=== PATIENT | female | born 1945 | race Caucasian/White ===

== ENCOUNTER 2020-11-07 07:57 | Inpatient (IN) ==
--- NOTE | 2020-10-03 12:16 | PAT Medication Instructions ---
Medication Instructions Date of Service October 03, 2020 Home Medications aspirin 81 mg capsule 81 mg PO QAM calcium citrate 500 mg (2,376 mg) effervescent tablet 500 mg PO QAM cholecalciferol (vitamin D3) 25 mcg (1,000 unit) chewable tablet (Vitamin D3) 25 mcg PO QAM gabapentin 100 mg tablet 100 mg PO TID losartan 50 mg tablet 50 mg PO QAM durmlceh-fdp-uyzems 5 mg-zeaxanth 1 mg-bilberry 7.5 mg-herbal capsule (Macular Health Formula) 1 cap PO QAM multivitamin 1 cap PO QAM omega-3 fatty acids 1,000 mg PO QAM STOP taking 2 weeks before surgery toiukele-dpk-wwbeeu 5 mg-zeaxanth 1 mg-bilberry 7.5 mg-herbal capsule (Macular Health Formula) 1 cap PO QAM omega-3 fatty acids 1,000 mg PO QAM DO NOT take the morning of surgery calcium citrate 500 mg (2,376 mg) effervescent tablet 500 mg PO QAM cholecalciferol (vitamin D3) 25 mcg (1,000 unit) chewable tablet (Vitamin D3) 25 mcg PO QAM losartan 50 mg tablet 50 mg PO QAM multivitamin 1 cap PO QAM Take morning of surgery With a small sip of water, OTHERWISE NOTHING TO EAT OR DRINK AFTER MIDNIGHT: aspirin 81 mg capsule 81 mg PO QAM (unless surgeon directs otherwise) gabapentin 100 mg tablet 100 mg PO TID Take evening before surgery gabapentin 100 mg tablet 100 mg PO TID Other Notes If you have any questions please call us at [phone] or [phone] or [phone] or [phone]
--- NOTE | 2020-10-05 13:41 | Anesthesiology Consultation ---
Date of Service October 05, 2020 Assessment & Plan (1) Encounter for pre-operative examination: Chart Review Chart Review: Acceptable Risk for Surgery (pending preop Covid testing results ) and Patient seen in Pre Admission Testing Per PAT appt on 10/05/20, patient denies any recent travel or large group activities. No known Covid positive contacts or Covid related symptoms. No known Covid infection in the past 90 days. Pt is vaccinated for Covid. Preop Covid testing scheduled 11/03/20 = will await results. Educated on importance of self quarantining, social distancing and wearing mask in public for the patient one week prior to surgery and after Covid testing done Pt seen by PCP 09/28/20= patient presents for clearance for back surgery. " Patient is cleared for surgery. EKG performed in the office shows LBBB. This EKG is unchanged from previous EKG from 2010." (Pt had ECHO done in 2010 (no RWMA) - discussed with Dr. Segura- pt has low CV risk factors (HTN/age), no recent chest pain or WALKER, and also has good functional status- pt can proceed without further cardiar work up ) Teaching & Discussion Pre-Anesthesia Teaching/Discussion Notes: Instructed NPO after midnight before surgery,except medications with 15 cc of water. Medication instructions provided according to the PAT guidelines. History Surgery Operation Date: 11/07/20 09:35 Proposed Procedures p L4-L5 Decompression Fusion Spinal Cord Monitoring - Otto Henderson DO Height/Weight Height: 5 ft 4 in Weight: 72.3 kg Allergies Allergy/AdvReac Type Severity Reaction Status Date / Time No Known Allergies Allergy Verified 10/03/20 10:51 Medications Home Medications Medication Instructions Recorded Confirmed Last Taken aspirin 81 mg capsule 81 mg PO QAM 10/03/20 10/03/20 Unknown calcium citrate 500 mg (2,376 mg) 500 mg PO QAM 10/03/20 10/03/20 Unknown effervescent tablet cholecalciferol (vitamin D3) 25 25 mcg PO QAM 10/03/20 10/03/20 Unknown mcg (1,000 unit) chewable tablet (Vitamin D3) gabapentin 100 mg tablet 100 mg PO TID 10/03/20 10/03/20 Unknown losartan 50 mg tablet 50 mg PO QAM 10/03/20 10/03/20 Unknown cnvjflxb-szm-lhjzbo 5 mg-zeaxanth 1 cap PO QAM 10/03/20 10/03/20 Unknown 1 mg-bilberry 7.5 mg-herbal capsule (Macular Health Formula) multivitamin 1 cap PO QAM 10/03/20 10/03/20 Unknown omega-3 fatty acids 1,000 mg PO QAM 10/03/20 10/03/20 Unknown Past Medical History Medical History (Updated 10/05/20 @ 14:05 by Yolanda Cortez PA-C) CKD (chronic kidney disease), stage III HTN (hypertension) Macular degeneration Spinal stenosis Exercise / Class Metabolic Activity II 4-5 Yardwork/Stairs/Walk up hill (one flight of stairs - no chest pain or SOB ) Past Surgical History Surgical History History of carpal tunnel surgery of right wrist Hx of toe surgery right and has pin Past Anesthesia History No Hx of Anesthesia Complications (with exception to occ PONV ) and No Family Hx of Anesthesia Complications History of PONV History of PONV and Hx of Motion Sickness Social History Smoking Status: Never smoker Do You Dip or Chew Tobacco: No Hx Alcohol Use: Yes Alcohol type: wine alcohol intake frequency: a few times a month Hx Substance Use: No substance use type: does not use Review of Systems Occ palpitations - x years - occ- stable- PCP aware and monitors Patient denies chest pain, shortness of breath, dyspnea on exertion, reflux, cough, wheezing. No hx of seizures, stroke, FL, apnea/snoring. No hx of blood clots or blood transfusions Physical Exam Vital Signs VITALS BP 161/76 (usually well controlled per patient- BP at PCP appt on 09/28/20 was 112/62) P 61 TEMP 98.3 SP02 95% RESP 16 Constitutional no acute distress ENMT Mouth: no TMJ clicking Thyromental Distance: > or= 3.5 Finger Breadths (4.0) Mallampati Class: III Missing molars Crowns on molars Neck + limited neck extension (mild ) Respiratory normal respiratory effort; no respiratory distress Auscultation: lungs clear to auscultation bilaterally; no wheezes Cardiovascular Rate/Rhythm: regular rate and regular rhythm Heart Sounds: no murmur Vessels: no carotid bruit Musculoskeletal Spine: no pain with cervical ROM Extremities: extremities normal to inspection Psychiatric Orientation: alert Lab Results Anesthesia Preop Results Results Anesthesia Widget: WBC 7.45 K/uL (4.8-10.8) 10/05/20 Hgb 13.6 g/dL (12.0-16.0) 10/05/20 Hct 41.0 % (37-47) 10/05/20 Plt 321 K/uL (130-400) 10/05/20 Na 139 mmol/L (136-145) 10/05/20 K 4.6 mmol/L (3.5-5.1) 10/05/20 Cl 106 mmol/L (98-107) 10/05/20 CO2 28 mmol/L (21-32) 10/05/20 BUN 23 mg/dl (7-18) H 10/05/20 Creat 0.93 mg/dl (0.6-1.2) 10/05/20 Glucose Level 87 mg/dl (70-99) 10/05/20 PT 10.2 Seconds (9.0-12.0) 10/05/20 PTT 26.2 Seconds (21.0-31.0) 10/05/20 INR 1.0 (0.9-1.1) 10/05/20 Urine Color Yellow 10/05/20 Urine Appearance Clear (Clear) 10/05/20 Urine pH 6.5 (4.5-7.5) 10/05/20 Urine Specific [place] 1.023 (1.000-1.030) 10/05/20 Urine Protein Negative (Negative) 10/05/20 Urine Glucose (UA) Negative (Negative) 10/05/20 Urine Ketones Trace (Negative) H 10/05/20 Urine Blood Negative (Negative) 10/05/20 Urine Nitrite Negative (Negative) 10/05/20 Urine Bilirubin Negative (Negative) 10/05/20 Urine Urobilinogen Negative (Negative) 10/05/20 Urine Leukocyte Esterase Negative (Negative) 10/05/20 Blood Type A Positive 10/05/20 Antibody Screen NEGATIVE 10/05/20 Testing Electrocardiogram Date: 09/28/20 SR at 65bpm. LBBB and left axis. No change from 2010 per confirming provider. Chest X-Ray Date: 10/05/20 Findings: + NAD and + cardiomegaly (moderate ) Lung volumes are normal. There is no pneumothorax or pleural effusion. No consolidation to suggest pneumonia. Note is made of moderate cardiomegaly. There is mitral annular calcification. Opacity at the right cardiophrenic angle likely reflects epicardial fat pad. There is no evidence for pulmonary edema. Echocardiogram Date: 09/05/10 EF: 55% or better LV Function: normal RWMA: + none Other Findings: no LVH Mild to moderately increased RVSP 52mmHg. AV sclerosis. No significant aortic stenosis. Mild AR.
--- NOTE | 2020-11-04 10:38 | History & Physical Report ---
Date of Service November 04, 2020 Assessment & Plan (1) Neurogenic claudication due to lumbar spinal stenosis: Plan: Assessment lumbar spinal stenosis with spinal listhesis L4-L5. Plan this time patient presents with progressive neurologic deficits lumbar instability and severe spinal stenosis. In light of her presentation I am recommending urgent lumbar decompression and fusion L4-L5 to avoid any permanent neurologic deficit. Risk benefits pros cons and alternatives were outlined in detail. History of Present Illness Chief Complaint: Back with bilateral leg pain and weakness Primary Care Provider: Park Su MD This is a 75-year-old female presents with progressive decline in status. She has bilateral buttock pain radiating into the right and left lower extremities. The right is worse than the left. She is failed extensive course of nonoperative care she is unable to stand and ambulate and notes her legs giving way. Allergies Allergy/AdvReac Type Severity Reaction Status Date / Time No Known Allergies Allergy Verified 10/03/20 10:51 Home Medications Medication Instructions Recorded Confirmed Type aspirin 81 mg capsule 81 mg PO QAM 10/03/20 10/03/20 History calcium citrate 500 mg (2,376 mg) 500 mg PO QAM 10/03/20 10/03/20 History effervescent tablet cholecalciferol (vitamin D3) 25 25 mcg PO QAM 10/03/20 10/03/20 History mcg (1,000 unit) chewable tablet (Vitamin D3) gabapentin 100 mg tablet 100 mg PO TID 10/03/20 10/03/20 History losartan 50 mg tablet 50 mg PO QAM 10/03/20 10/03/20 History gzngvrkc-vzh-jcrxtr 5 mg-zeaxanth 1 cap PO QAM 10/03/20 10/03/20 History 1 mg-bilberry 7.5 mg-herbal capsule (Macular Health Formula) multivitamin 1 cap PO QAM 10/03/20 10/03/20 History omega-3 fatty acids 1,000 mg PO QAM 10/03/20 10/03/20 History Past Med/Surg History Medical History (Updated 11/04/20 @ 10:38 by Otto Henderson DO) CKD (chronic kidney disease), stage III HTN (hypertension) Macular degeneration Spinal stenosis Surgical History History of carpal tunnel surgery of right wrist Hx of toe surgery right and has pin Social History Smoking Status: Never smoker Second Hand Exposure: No; Hx Alcohol Use: Yes Alcohol type: wine Hx Substance Use: No Preferred Language: Thai Communication Ability: Effective Forensic Investigator Required: No Beliefs That Will Affect Care: None Current Living Situation: Spouse Feels Safe at Home: Yes Assistive Devices: Contacts, Glasses and Hearing Aid - Bilateral Physical Exam Physical Exam: Patient is alert and oriented Heart regular in rhythm Lungs clear to auscultation Patient demonstrates deficits with bilateral dorsiflexion and quadriceps at a 4- /5. She is unable to stand and ambulate across the room without assistance secondary to leg weakness. Sensory is intact.
[~2020-11-07 07:57] MED LIST: ACETAMINOPHEN 500 MG TAB PO SCH; CeleBREX 200 MG CAP PO SCH; GABAPENTIN 300 MG CAP PO SCH; LR 15ML/HR IV SCH; ceFAZolin 1000MG 1,000 MG/7.5 ML SYR IV SCH
[2020-11-07] MEDS ORDERED: fentaNYL citrate 100 MCG/2 ML VIAL ONE (08:12)
[2020-11-07] MEDS ORDERED: MIDAZOLAM HCL 1 MG/ML 2ML VIAL ONE (08:12)
[2020-11-07] MEDS ORDERED: fentaNYL citrate 100 MCG/2 ML VIAL IV PRN (08:57)
[2020-11-07] MEDS ORDERED: PROMETHAZINE HCL 6.25 MG in SODIUM CHLORIDE 0.9% 50 ML IV PRN (08:57)
[2020-11-07] MEDS ORDERED: ePHEDrine sulfate 50 MG/ML AMP IV PRN (08:57)
[2020-11-07] MEDS ORDERED: ATROPINE SULFATE 0.1 MG/ML 10ML SYR IV PRN (08:57)
[2020-11-07] MEDS ORDERED: ONDANSETRON INJ 2 MG/ML 2 ML VIAL IV PRN ×2 (08:57→13:29)
--- NOTE | 2020-11-07 09:03 | History & Physical Bridge Note ---
Date of Service November 07, 2020 History & Physical Bridge Note I have examined the patient, reviewed the History & Physical and in the interval since the performance of the History & Physical I have noted the following changes of clinical significance: no changes noted
[2020-11-07] MEDS ORDERED: EPINEPHrine INJ 1 MG/ML AMP ONE (09:18)
[2020-11-07] MEDS ORDERED: BUPIVACAINE 0.5 % 5 MG/1 ML MPF 30ML VIAL ONE (09:18)
[2020-11-07] MEDS ORDERED: HYDROmorphone INJ 2 MG/ML SYR/VIAL ONE (10:01)
[2020-11-07] MEDS ORDERED: GLYCOPYRROLATE 0.2 MG/ML VIAL ONE (10:03)
[2020-11-07] MEDS ORDERED: PROPOFOL IV EMULSION 10 MG/ML 20 ML VIAL IV ONE (10:03)
[2020-11-07] MEDS ORDERED: ePHEDrine sulfate 50 MG/ML SYR ONE (10:03)
[2020-11-07] MEDS ORDERED: PHENYLEPHRINE 100MCG/ML 5ML SYR ONE (10:03)
[2020-11-07] MEDS ORDERED: ROCURONIUM BROMIDE 10 MG/ML 5 ML VIAL IV ONE (10:03)
[2020-11-07] MEDS ORDERED: ONDANSETRON INJ 2 MG/ML 2 ML VIAL ONE (10:03)
[2020-11-07] MEDS ORDERED: DEXAMETHASONE SOD INJ 4 MG/ML VIAL ONE (10:03)
[2020-11-07] MEDS ORDERED: NEOSTIGMINE METHYLSULFATE 1 MG/ML 10ML VIAL ONE (10:03)
[2020-11-07] MEDS ORDERED: LIDOCAINE 2% 2 ML VIAL/AMP(20MG/ML) INFIL ONE (10:03)
[2020-11-07] MEDS ORDERED: FLOSEAL HEMOSTATIC MATRIX 10ML TOP ONE (11:07)
--- NOTE | 2020-11-07 11:11 | Operative Report ---
Post Operative Report Pre & Post Diagnosis Operation Date: 11/07/20 09:35 Pre-Op Diagnosis: Spinal Stenosis, Lumbar Region with Neurogenic Claudication Post-Op Diagnosis: Spinal Stenosis, Lumbar Region with Neurogenic Claudication I identified the patient and participated in the time-out.: Yes Procedure Operation Date: 11/07/20 09:35 Actual Procedures #1 lumbar decompression bilateral medial facetectomies and foraminotomies L3-4 and L4-L5. #2 posterior spinal fusion L4-L5. #3 placed posterior instrumentation L4-5. #4 interbody fusion L4-5. #5 placement peek cage 12 x 26 mm at L4-5. #6 placement locally harvested morselized autograft in the posterior gutters. #7 placement of I factor in the interbody space in infuse collagen sponge, master graft in the posterior lateral gutters. Surgeon Otto Henderson DO Jeweler Apprentice Leonor Charles Estimated Blood Loss 75 Findings Consistent with Post-Op Diagnosis Specimens None Indications This is a 75-year-old female with marked decline in status after failing extensive course of nonoperative care she is here for surgical invention. Description of Procedure Patient was met with identified informed consent obtained. Patient was then taken to the operative suite underwent an patient placed in a prone position the [place] table top Aakash frame. All bony prominences well-padded eyes inspected to ensure no external pressure placed upon them. This point lumbar spine was prepped and draped in a sterile fashion. Sharp dissection with the assistance of Bovie cautery was performed down to and exposing the lamina and transverse processes of L for L5. From caudal cephalad fashion complete laminectomy of L4 partial laminectomy L3 was performed including bilateral medial facetectomies and foraminotomies addressing severe spinal stenosis. Pedicle screws were then placed in L4 and L5 bilaterally with assistance of fluoroscopy and appropriate sized bree placed. By way of a transforaminal approach on the right complete discectomy of L4-5 was performed endplates curetted to subcortically bone and a 12 x 22 mm peek cage filled I factor tapped in position. The rods were then compressed locked in final position bilaterally. The transverse processes of L4 and L5 burred to subcortical being bone. Infuse collagen sponge master graft and local autograft was placed in the posterior gutters. 15 round SHIRA drain inserted. Incision was then closed with 1 Vicryl to fascia 2-0 Vicryl subcutaneously and 4 Monocryl for final skin closure. Steri-Strip sterile dressings placed. Patient will continue to PACU stable condition. Please note spinal cord monitoring visualized at the procedure no changes noted. Lastly Leonor Charles was present at the entire procedure and all the patient positioning complex portions of the surgery and final skin closure. I attest to the content of the Intraoperative Record and any orders documented therein. Any exceptions are noted below.
--- NOTE | 2020-11-07 11:25 | Fluoroscopy Report ---
FL lumbar spine 2-3V HISTORY: 75 years-old Female L4-L5 DECOMP/FUSION COMPARISON: MR lumbar spine 09/20/2020 TECHNIQUE: 2 spot fluoroscopic images of the lumbar spine were obtained utilizing 19.2 seconds fluoro scopy time FINDINGS: And laminectomy with posterior interbody bree and screw fusion and discectomy at what is labeled the L 4-L5 interspace. The hardware appears intact. Alignment appears satisfactory. No acute fracture. Mult ilevel spondylitic spurring. IMPRESSION: Fluoroscopic assistance as above. ACT 112: Negative or not required by law. The above report was generated using voice recognition software. It may contain grammatical, syntax o r spelling errors. Electronically signed by: Kike Redd M.D. 11/07/2020 11:24 AM
--- NOTE | 2020-11-07 11:42 | Anesthesiology Progress Note ---
Date of Service November 07, 2020 Anesthesia Post Procedure Vital Signs Vital Signs: Temp Pulse Resp BP Pulse Ox 11/07/20 08:36 37 C 66 18 204/72 H 98 Transfer of Care Handoff Completed per policy Notes Mental Status: alert / awake / arousable Patient Amnestic to Procedure: Yes Nausea / Vomiting: adequately controlled Pain: adequately controlled Airway Patency, RR, SpO2: stable & adequate BP & HR: stable & adequate Hydration State: stable & adequate Anesthetic Complications: no major complications apparent
[2020-11-07] MEDS ORDERED: traMADol HCL 50 MG TABLET PO PRN (13:29)
[2020-11-07] MEDS ORDERED: hydrOXYzine HCl 25 MG TAB PO PRN (13:29)
[2020-11-07] MEDS ORDERED: METOCLOPRAMIDE HCL INJ 5 MG/ML 2 ML VIAL IV PRN (13:29)
[2020-11-07] MEDS ORDERED: SOD PHOSPHATE/SOD BIPHOSPHATE ENEMA 132 ML BTL PR PRN (13:29)
[2020-11-07] MEDS ORDERED: diphenhydrAMINE Capsule 25 MG CAP PO PRN (13:29)
[2020-11-07] MEDS ORDERED: oxyCODONE HCL IR 5 MG TAB (IMMEDIATE RELEASE) PO PRN (13:29)
[2020-11-07] MEDS ORDERED: DO NOT ADMINISTER FLU VACCINE PRN (13:29)
[2020-11-07] MEDS ORDERED: ONDANSETRON 4 MG OD TAB PO PRN (13:29)
[2020-11-07] MEDS ORDERED: HYDROmorphone INJ 0.5 MG/0.5 ML SYR IV PRN (13:29)
[2020-11-07] MEDS ORDERED: ALUMINUM/MAGNESIUM SUSP 30 ML UDC PO PRN (13:29)
[2020-11-07] MEDS ORDERED: DO NOT ADMINISTER PNEUMOCOCCAL VACCINE PRN (13:29)
[2020-11-07] MEDS ORDERED: ACETAMINOPHEN 1,000 MG/100 ML VIAL IV PRN (13:29)
[2020-11-07] MEDS ORDERED: FAMOTIDINE 20 MG TAB PO PRN (13:29)
[2020-11-07] MEDS ORDERED: LORazepam 0.5 MG/1 ML VIAL IV PRN (13:29)
[2020-11-07] MEDS ORDERED: MAGNESIUM HYDROXIDE SUSP 30 ML UDC PO PRN (13:29)
[2020-11-07] MEDS ORDERED: NALOXONE HCL 0.4 MG/1 ML VIAL/CARP IV PRN (13:29)
[2020-11-07] MEDS ORDERED: HYDROmorphone INJ 1 MG/ML SYRINGE IV PRN (13:29)
[2020-11-07] MEDS ORDERED: ACETAMINOPHEN 500 MG TAB PO PRN (13:29)
[2020-11-07] MEDS ORDERED: PROMETHAZINE HCL 12.5 MG in SODIUM CHLORIDE 0.9% 50 ML IV PRN (13:29)
[2020-11-07] MEDS ORDERED: LORazepam 0.5 MG TAB PO PRN (13:29)
[2020-11-07] MEDS ORDERED: bisacodyL 10 MG SUPP PR PRN (13:29)
[2020-11-07] MEDS ORDERED: hydrALAZINE HCL 20 MG/ML VIAL IV PRN (14:09)
[2020-11-07] MEDS: GABAPENTIN 100 MG CAP PO SCH ×2 (15:07→20:41)
[2020-11-07] MEDS: LACTATED RINGER'S 1,000 ML IV SCH (15:17)
--- NOTE | 2020-11-07 15:40 | Hospitalist Consultation ---
Date of Consultation November 07, 2020 Assessment & Plan (1) Neurogenic claudication due to lumbar spinal stenosis: - POD#0 L4-L5 decompression and fusion by Dr. Henderson - activity and wound care orders as per ortho - pain control with bowel regimen - PT/OT - monitor H/H for acute blood loss anemia and transfuse blood products PRN -EBL 75 cc (2) HTN (hypertension): -BP noted to the elevated intra and postoperatively -Losartan held this morning, continue to hold pending a.m. renal labs -As needed hydralazine ordered (3) DVT prophylaxis: -TEDs/SCDs as per spine Ortho Thank you for this consultation. We will follow the patient with you during their hospital stay. You can reach [facility] via the [facility] in [place] [facility]. Supervising Physician Co-Signing Physician Notes Patient is a 75-year-old female with history of CKD, hypertension and other medical problems was seen and examined postoperatively after having lumbar surgery by Dr. Henderson for lumbar spinal stenosis with neurogenic claudication. Patient is doing well postoperatively. She states having nausea earlier today which improved. Denies any chest pain, shortness breath, dizziness, nausea, abdominal pain. Back pain at surgical site is controlled. On exam patient is moderately built and nourished, no apparent distress, normocephalic atraumatic, EOMI, lungs are clear to auscultation, normal breath sounds, S1-S2, no murmur, no pedal edema, abdomen soft, nontender, normal bowel sounds, back+ surgical site in dressing, alert, awake, oriented, grossly moves all extremities. Patient is consulted for postop medical management. Restart losartan for blood pressure control tomorrow. Monitor blood pressure closely. Continue bowel regimen to prevent constipation. Monitor for postop anemia. Monitor renal function. Wound care, activity, DVT prophylaxis as per primary team. I personally reviewed the record. Patient is interviewed and examined at bedside. Patient's care is coordinated with Chelita Tobias NP. Please refer to the documentation above for details of patient's presentation and for discussion of other issues. History of Present Illness Reason for Consultation: Postop medical management Requesting Physician: Dr. Henderson Attending Physician: Dr. Mancini History of Present Illness 75-year-old female PMH HTN, CKD stage III, and other problems listed below who is s/p L4-L5 decompression and fusion today by Dr. Henderson. Postoperatively, the patient is doing well. She reports her pain is well controlled. She denies numbness, tingling, weakness to lower extremities. She reports some mild nausea however no vomiting or abdominal pain. No chest pain or shortness of breath. Denies lightheadedness and dizziness. She has not voided some surgery. Allergies Allergy/AdvReac Type Severity Reaction Status Date / Time No Known Allergies Allergy Verified 11/07/20 08:30 Home Medications Medication Instructions Recorded Confirmed Type aspirin 81 mg capsule 81 mg PO QAM 10/03/20 11/07/20 History calcium citrate 500 mg (2,376 mg) 500 mg PO QAM 10/03/20 11/07/20 History effervescent tablet cholecalciferol (vitamin D3) 25 25 mcg PO QAM 10/03/20 11/07/20 History mcg (1,000 unit) chewable tablet (Vitamin D3) gabapentin 100 mg tablet 100 mg PO TID 10/03/20 11/07/20 History losartan 50 mg tablet 50 mg PO QAM 10/03/20 11/07/20 History lioivine-xek-ghvhzg 5 mg-zeaxanth 1 cap PO QAM 10/03/20 11/07/20 History 1 mg-bilberry 7.5 mg-herbal capsule (Macular Health Formula) multivitamin 1 cap PO QAM 10/03/20 11/07/20 History omega-3 fatty acids 1,000 mg PO QAM 10/03/20 11/07/20 History Patient History Medical History CKD (chronic kidney disease), stage III HTN (hypertension) Macular degeneration Spinal stenosis Surgical History History of carpal tunnel surgery of right wrist Hx of toe surgery right and has pin Family History (Updated 11/07/20 @ 15:37 by EZRA Broussard) Other Family history non-contributory Social History Smoking Status: Never smoker Second Hand Exposure: No; Do You Dip or Chew Tobacco: No; Tobacco Cessation Education Requested by Patient: No Hx Alcohol Use: Yes Alcohol type: wine Hx Substance Use: No Preferred Language: [place]an Communication Ability: Effective Patient Scheduler Required: No Beliefs That Will Affect Care: None Current Living Situation: Spouse Other Information That Helps Us Care for You: No Feels Safe at Home: Yes Safety Concerns: Feels Safe At This Time Assistive Devices: Walker Review of Systems Review of Systems: ROS per HPI, all other systems reviewed and negative Physical Exam Constitutional: WD/WN, vitals as above Eyes: PERRL, conjunctivae normal, anicteric sclerae ENMT: external ear and nose normal, oropharynx normal Respiratory: normal respiratory effort, lungs clear to auscultation Cardiovascular: Rate/Rhythm: regular rate and regular rhythm Vessels: normal peripheral pulses Extremities: no edema Gastrointestinal (Abdomen): normal bowel sounds, soft, nontender, no hepatosplenomegaly Musculoskeletal: no cyanosis or clubbing, extremities motor strength 5/5 S/p back surgery, drain in place draining bloody drainage, pedal pushes and pull strong bilaterally Skin: no rashes, warm and dry Neurologic: PERRL, EOMI, accommodation nl, no face palsy, no dysarthria Psychiatric: A+Ox3, euthymic affect Results & Data Results & Data ([facility]) Vital Signs (Past 12 Hours) Vital Signs Temp Pulse Pulse Pulse Resp BP BP 11/07/20 15:29 36.4 C L 77 16 145/69 H 11/07/20 14:25 36.0 C L 68 18 181/77 H 11/07/20 13:55 36.4 C L 68 16 186/77 H 11/07/20 13:51 36.4 C L 67 16 181/74 H 11/07/20 13:15 63 15 185/81 H 11/07/20 13:00 68 16 192/77 H 11/07/20 12:50 36.5 C 69 16 203/70 H 11/07/20 12:40 69 12 194/67 H 11/07/20 12:30 71 15 201/61 H 11/07/20 12:20 60 16 192/83 H 11/07/20 12:10 59 L 12 199/71 H 11/07/20 12:00 74 13 201/79 H 11/07/20 11:50 65 12 196/70 H 11/07/20 11:40 64 17 192/73 H 11/07/20 11:30 74 18 180/73 H 11/07/20 11:23 36.2 C L 82 18 172/80 H 11/07/20 08:36 37 C 66 18 204/72 H Pulse Ox 11/07/20 15:29 99 11/07/20 14:25 98 11/07/20 13:55 99 11/07/20 13:51 98 11/07/20 13:15 95 11/07/20 13:00 96 11/07/20 12:50 97 11/07/20 12:40 97 11/07/20 12:30 98 11/07/20 12:20 93 11/07/20 12:10 92 11/07/20 12:00 93 11/07/20 11:50 98 11/07/20 11:40 98 11/07/20 11:30 97 11/07/20 11:23 97 11/07/20 08:36 98
[2020-11-07] MEDS: ceFAZolin 1000MG 1,000 MG/7.5 ML SYR IV SCH (18:00)
[2020-11-07] MEDS: DOCUSATE SODIUM/SENNA 50/8.6MG TAB PO SCH (20:40)
[2020-11-08] MEDS: ceFAZolin 1000MG 1,000 MG/7.5 ML SYR IV SCH (01:42)
[2020-11-08] MEDS: LACTATED RINGER'S 1,000 ML IV SCH (01:43)
[2020-11-08] MEDS: POLYETHYLENE (MIRALAX) 17 GM PACK PO SCH ×4 (06:29→22:28)
[2020-11-08 08:08] LABS: Basophils # (auto) 0.01 K/uL (0-0.2); Basophils % (auto) 0.1 %; Eosinophils # (auto) 0.01 K/uL (0-0.5); Eosinophils % (auto) 0.1 %; Hematocrit (blood only) 36.2 % (37-47); Immature Granulocytes # (auto) 0.04 K/uL (0.00-0.02); Immature Granulocytes % (auto) 0.3 %; Lymphocytes # (auto) 1.12 K/uL (1.2-3.4); Lymphocytes % (auto) 8.2 %; Mean Corpuscular Hemoglobin 28.7 pg (25-34); Mean Corpuscular Hgb Conc 33.1 g/dL (32-36); Mean Corpuscular Volume 86.6 fL (80-100); Mean Platelet Volume 9.4 fL (7.4-10.4); Monocytes # (auto) 1.39 K/uL (0.11-0.59); Monocytes % (auto) 10.2 %; Neutrophils # (auto) 11.03 K/uL (1.4-6.5); Neutrophils % (auto) 81.1 %; Platelet Count 279 K/uL (130-400); RDW Coefficient of Variation 14.7 % (11.5-14.5); RDW Standard Deviation 46.1 fL (36.4-46.3); Red Blood Count 4.18 M/uL (4.2-5.4)
[2020-11-08 08:38] LABS: BUN Creatinine Ratio 17.4 (10-20); Calcium 9.3 mg/dl (8.5-10.1); Creatinine Clr Calc Pharmacy 50.5 ml/min; Est GFR (African American) 70.5 ml/min; Est GFR (Non-African American) 60.9 ml/min; Potassium 4.2 mmol/L (3.5-5.1)
[2020-11-08] MEDS ORDERED: NON-FORMULARY MEDICATION (Mv-Mn-Lutein-Zeax-Bilber-Hb277 [Macular Health Formula] 5-1-7.5 PO SCH (09:00)
[2020-11-08] MEDS: CALCIUM CITRATE 950 MG TAB PO SCH (09:06)
[2020-11-08] MEDS: ASPIRIN 81 MG ECTAB PO SCH (09:06)
[2020-11-08] MEDS: LOSARTAN POTASSIUM 50 MG TAB PO SCH (09:06)
[2020-11-08] MEDS: CHOLECALCIFEROL 1,000 UNITS 25 MCG TAB PO SCH (09:06)
[2020-11-08] MEDS: GABAPENTIN 100 MG CAP PO SCH ×3 (09:06→20:06)
[2020-11-08] MEDS: CEROVITE ADV FORMULA TAB PO SCH (09:07)
--- NOTE | 2020-11-08 10:14 | Orthopedic Progress Note ---
Date of Service November 08, 2020 Assessment & Plan (1) Neurogenic claudication due to lumbar spinal stenosis: Plan: This time we will initiate physical therapy monitor her SHIRA output hopefully discharge home next few days. Admission and Anticipated Discharge Date Admission Date: November 07, 2020 Subjective Back pain controlled leg pain markedly improved Physical Exam Physical Exam: Patient is comfortable. Physical strength testing. Results & Data ([facility]) Vital Signs (Past 12 Hours) Vital Signs Temp Pulse Resp BP Pulse Ox 11/08/20 08:05 36.9 C 68 18 154/68 H 95 11/08/20 03:28 37 C 69 16 134/67 96 11/07/20 23:01 36.6 C 78 16 127/69 95
--- NOTE | 2020-11-08 14:13 | Hospitalist Progress Note ---
Date of Service November 08, 2020 Assessment & Plan (1) Neurogenic claudication due to lumbar spinal stenosis: Plan: - POD#1 L4-L5 decompression and fusion by Dr. Henderson - activity and wound care orders as per ortho - pain control with bowel regimen - PT/OT - monitor H/H for acute blood loss anemia and transfuse blood products PRN - EBL 75 cc, hgb stable 12.0 (2) HTN (hypertension): Plan: -BP elevated intra and postoperatively -received 1 dose hydralazine 11/07 -Losartan resumed today, BP controlled (3) DVT prophylaxis: Plan: -TEDs/SCDs as per spine Ortho Thank you for this consultation. We will follow the patient with you during their hospital stay. You can reach a member of the [facility] 03/09 via the [facility] role in [place] Text. Admission and Anticipated Discharge Date Admission Date: November 07, 2020 Supervising Physician Co-Signing Physician Notes Patient is seen and examined at bedside. States having some throat discomfort. Denies any significant back pain. + Flatus, No BM yet. On exam patient is moderately built and nourished, no apparent distress, normocephalic atraumatic, EOMI, lungs are clear to auscultation, normal breath sounds, S1-S2, no murmur, no pedal edema, abdomen soft, nontender, normal bowel sounds, back+ surgical site in dressing, alert, awake, oriented, grossly moves all extremities. lumbar spinal stenosis with neurogenic medication S/P lumbar decompression surgery POD #1 continue PT OT as per primary. Incentive spirometry. Bowel regimen to prevent constipation. Wound care, DVT prophylaxis as per primary team. Restarted losartan for blood pressure control. BP slightly elevated. I personally reviewed the record. Patient is interviewed and examined at bedside. Patient's care is coordinated with Chelita Tobias MANUFACTURING PROCESS ENGINEER. Please refer to the documentation above for details of patient's presentation and for discussion of other issues. Subjective Patient seen and examined. Resting in bed, having breakfast. Offers no complaints, reports pain is well controlled. Denies numbness, tingling, weakness to lower extremities. No chest pain or shortness of breath. Denies abdominal pain or nausea. Passing flatus however no BM. Voiding without difficulty. Review of Systems Review of Systems: All systems reviewed & are unremarkable except as noted in Subjective Physical Exam Constitutional: WD/WN, vitals as above Respiratory: normal respiratory effort, lungs clear to auscultation Cardiovascular: Rate/Rhythm: regular rate and regular rhythm Vessels: normal peripheral pulses Extremities: no edema Gastrointestinal (Abdomen): Inspection/Auscultation: normal bowel sounds Percussion/Palpation: abdomen soft; abdomen nontender Musculoskeletal: no cyanosis or clubbing, extremities motor strength 5/5 S/p back surgery, drain in place draining bloody drainage, pedal pushes and pull strong bilaterally Skin: no rashes, warm and dry Neurologic: no focal motor deficits Psychiatric: A+Ox3, euthymic affect Results & Data Results & Data ([facility]) Vital Signs (Past 12 Hours) Vital Signs Temp Pulse Resp BP Pulse Ox 11/08/20 12:23 37.1 C 70 18 144/72 H 96 11/08/20 08:05 36.9 C 68 18 154/68 H 95 11/08/20 03:28 37 C 69 16 134/67 96 Laboratory Results Short CBC 11/08/20 Range/Units 06:59 WBC 13.60 H (4.8-10.8) K/uL Hgb 12.0 (12.0-16.0) g/dL Hct 36.2 L (37-47) % Plt Count 279 (130-400) K/uL BMP 11/08/20 06:59 Sodium 142 Potassium 4.2 Chloride 110 H Carbon Dioxide 28 BUN 16 Creatinine 0.91 Glucose 99 Calcium 9.3
[2020-11-08] MEDS: DOCUSATE SODIUM/SENNA 50/8.6MG TAB PO SCH (20:06)
[2020-11-09] MEDS: POLYETHYLENE (MIRALAX) 17 GM PACK PO SCH (05:30)
[2020-11-09 06:23] LABS: Hematocrit (blood only) 36.1 % (37-47); Hemoglobin 11.3 g/dL (12.0-16.0); Mean Corpuscular Hemoglobin 28.3 pg (25-34); Mean Corpuscular Hgb Conc 31.3 g/dL (32-36); Mean Corpuscular Volume 90.3 fL (80-100); Mean Platelet Volume 9.4 fL (7.4-10.4); Platelet Count 266 K/uL (130-400); RDW Coefficient of Variation 14.8 % (11.5-14.5); RDW Standard Deviation 49.1 fL (36.4-46.3); White Blood Count 9.72 K/uL (4.8-10.8)
[2020-11-09 06:57] LABS: BUN Creatinine Ratio 24.9 (10-20); Calcium 8.6 mg/dl (8.5-10.1); Creatinine Clr Calc Pharmacy 46.9 ml/min; Est GFR (African American) 64.5 ml/min; Est GFR (Non-African American) 55.6 ml/min; Potassium 4.1 mmol/L (3.5-5.1)
[2020-11-09 07:30] VITALS: BP 137/70; PULSE 66; TEMP 98.4; O2SAT 96
--- NOTE | 2020-11-09 08:15 | Discharge Summary ---
Date of Service November 09, 2020 Admission HPI Per Admitting Provider This is a 75-year-old female presents with progressive decline in status. She has bilateral buttock pain radiating into the right and left lower extremities. The right is worse than the left. She is failed extensive course of nonoperative care she is unable to stand and ambulate and notes her legs giving way. Principal Diagnosis Lumbar spinal stenosis with neurogenic claudication Discharge Data Allergies Allergy/AdvReac Type Severity Reaction Status Date / Time No Known Allergies Allergy Verified 11/07/20 08:30 Consultations 11/07/20 13:29 Consult Hospitalist Routine Procedures Performed Operation Date: 11/07/20 09:35 Actual Procedures p L4-L5 Decompression Fusion, Spinal Cord Monitoring(Not Applicable) - Otto Henderson DO Ordered Studies 11/07/20 09:35 [place] lumbar spine 2-3V Routine Hospital Course (1) Neurogenic claudication due to lumbar spinal stenosis: Patient with lumbar decompression fusion trial exhausting orthopedic for postoperative. Postop day 1 she was up and ambulating progressed to postop day #2 SHIRA drain decreasing probably. Extra strength testing. Pain well controlled. Subsequent discharge home. Discharge orders instructions from the chart for further review. Total Time Total Time Spent Total Time Spent (In Minutes): 20 minutes Discharge Plan Discharge Items Patient Disposition: Home - Self-Care Reason For Visit: Spinal Stenosis, Lumbar Region with Neurogenic Discharge Diagnosis: Lumbar spinal stenosis with neurogenic claudication Activity: As commented below Non-emergency contact: Primary Care Provider Call non-emergency contact if: you have any medication questions Follow-up/Referrals: Park Su MD [Primary Care Provider] - Diet: Regular Addtl Attending Provider Instructions: ACTIVITY RECOMMENDATIONS: SELF CARE INSTRUCTIONS AFTER THORACIC/LUMBAR FUSIONS 1. You may walk to your tolerance. It is good exercise for your legs and back. Expect some back and intermittent leg aches and pains. 2. You may perform "counter-top" level activities (make a sandwich, tatyana with a project, etc.). 3. No bending or lifting of more than 10 pounds or back twisting of any nature (roll like a log when turning in bed). 4. You may ride in a car for 20-30 minutes at a time. No driving until after your first visit with your doctor. 5. Frequent changes of position and restricting sitting to 30 minutes at a time will help limit the amount of back spasms and stiffness you may experience. 6. You may discontinue the use of ambulatory aids (cane, crutches, etc.) once your strength and confidence allow. 7. You may electronics design engineer the shower and let water strike your incision when you arrive home at least once daily. Do not take a tub bath, sit in a hot tub or go into a swimming pool until after your first recheck in the office. SPECIAL CARE INSTRUCTIONS: VERY IMPORTANT TO READ AND REVIEW A. Your surgical incision has been closed with a cosmetic suture under the skin that will dissolve in about 6 weeks. In 14 days, you can use a pair of clean scissors and cut the suture that is left outside of the skin at the ends of your incision. 1. The small skin tapes can be removed 7 days after surgery if they have not fallen off by that point. 2. You may keep the wound open to air as much as possible to promote healing after post-op day number 5 unless told otherwise by your doctor. 3. If you think the wound looks like it is becoming infected (redness or worsening drainage) and/or you are experiencing fever, chill or worsening back pain and muscle spasms, contact the office so that we may evaluate you as soon as possible. B. Complications are uncommon, but please contact us if you have any signs or symptoms of: 1. wound infection (fever higher than 102.5 degrees F, redness, separation of wound, drainage, or increasing pain from the incision) 2. blood clots in legs (pain, swelling, redness and warmth in legs) 3. urinary tract infection (fever higher than 102.5 degrees F, burning upon urination or increased frequency of urination) 4. nerve problems (inability to walk on your toes or heels, numbness, loss of bowel or bladder control) 5. any other symptoms that concern you C. Please call the office at if you have any concerns or questions about your operation or recovery. D. No smoking! Smoking drastically decreases the chance of a solid fusion. E. Do not take any anti-inflammatory medications (Indocin, Advil, Motrin, Aspirin, Naprosyn, etc.) as these may inhibit the chance of a solid fusion. Tylenol is okay to take for pain. MANAGING PAIN AFTER SPINAL SURGERY 1. Narcotic medication is intended for short-term use and will be provided for surgical pain. Surgical pain usually lasts for a period of 4-6 weeks. Narcotic medication includes Percocet, Vicodin, Darvocet, Tylenol #3 or Lortab. 2. Longer-term pain is more appropriately treated with non-narcotic medication such as Tylenol ES. 3. Muscle spasm is not appropriately treated with narcotics. Muscle relaxers such as Soma, Flexeril or Skelaxin can be used along with Tylenol ES. 4. Remember that we all live with some "aches and pains". This is not unusual or uncommon after an injury or as we get older. a. Back pain is expected and may include muscle spasms for 4 to 6 weeks after surgery. The pain should gradually improve. If the pain worsens for no apparent reason, please contact the office. b. Intermittent leg pain may also be experienced and should not be concerned about unless it worsens for no apparent reason. If so, please contact the office. 5. We will provide appropriate medication within the normal guidelines of their prescribed use. We will also be very cautious and aware of potential abuse and extended duration of patients' medication needs. a. Pain medications are for your comfort and to assist with sleep and rest s o that the tissue can heal. They are not provided in order to return to normal activity and should not be used through the day. To do so or worsening pain at night can result from ongoing tissue damage and development of tolerance to the prescribed medicine. 6. Please allow 2-3 days to process refills. Prescriptions will not be mailed but must be picked up at the office. FOLLOW UP VISIT: Keep your scheduled follow-up appointment. Any questions, please call the office at . Pending Studies at Discharge: No Stand-Alone Forms: [facility], Smoking Cessation Medications and DC Order Prescriptions: New tramadol 50 mg tablet 50 mg PO Q6H PRN (Reason: pain, moderate) Qty: 30 RF: 0 oxycodone 5 mg tablet 5 mg PO Q6H PRN (Reason: pain, severe) Qty: 30 RF: 0 Continued losartan 50 mg Tablet 50 mg PO QAM RF: 0 calcium citrate 500 mg Tablet, Effervescent 500 mg PO QAM RF: 0 multivitamin Capsule 1 cap PO QAM RF: 0 omega-3 fatty acids Capsule 1,000 mg PO QAM RF: 0 gabapentin 100 mg Tablet 100 mg PO TID RF: 0 cholecalciferol (vitamin D3) [Vitamin D3] 25 mcg (1,000 unit) Tablet,Chewable 25 mcg PO QAM RF: 0 Macular Health Formula 5-1-7.5 mg Capsule 1 cap PO QAM RF: 0 aspirin 81 mg Capsule 81 mg PO QAM RF: 0 Discharge Orders: Discharge Order (Routine); Ordered 11/09/20 Ordered By: Otto Henderson Admission Data Admit Date/Time: 11/07/20 11:15 Attending Provider: Otto Henderson Admit Provider: Otto Henderson Primary Care Provider: Park Su Other Providers: Chelita Tobias ; Aroldo Mnacini ; Magaly Sotomayor I.
[2020-11-09] MEDS ORDERED: dexAMETHasone 8 MG in SYRINGE 0 ML IV SCH (09:00)
[2020-11-09] MEDS: ASPIRIN 81 MG ECTAB PO SCH (09:02)
[2020-11-09] MEDS: CALCIUM CITRATE 950 MG TAB PO SCH (09:02)
[2020-11-09] MEDS: GABAPENTIN 100 MG CAP PO SCH (09:02)
[2020-11-09] MEDS: LOSARTAN POTASSIUM 50 MG TAB PO SCH (09:03)
[2020-11-09] MEDS: CHOLECALCIFEROL 1,000 UNITS 25 MCG TAB PO SCH (09:03)
[2020-11-09] MEDS: CEROVITE ADV FORMULA TAB PO SCH (09:03)
--- NOTE | 2020-11-09 12:26 | Hospitalist Progress Note ---
Date of Service November 09, 2020 Assessment & Plan (1) Neurogenic claudication due to lumbar spinal stenosis: Plan: - POD#2 L4-L5 decompression and fusion by Dr. Henderson - activity and wound care orders as per ortho - pain control with bowel regimen - PT/OT - monitor H/H for acute blood loss anemia and transfuse blood products PRN - EBL 75 cc, hgb 12.0 -> 11.3 - Stable for discharge today (2) HTN (hypertension): Plan: -BP elevated intra and postoperatively -received 1 dose hydralazine 11/07 -Losartan resumed 11/08, BP controlled (3) DVT prophylaxis: Plan: -TEDs/SCDs as per spine Ortho Thank you for this consultation. We will follow the patient with you during their hospital stay. You can reach a member of the [facility] Hospitalist Team 03/09 via [facility] [place] Text. Admission and Anticipated Discharge Date Admission Date: November 07, 2020 Supervising Physician Co-Signing Physician Notes History and physical exam performed by me I agree with findings and plan as detailed by Chelita MUNGUIA Subjective Patient seen and examined. Resting in bed. Reports pain is well controlled. Eager to be discharged. Denies chest pain or shortness of breath. Voiding without difficulty. Passing flatus however no BM. Denies abdominal pain and nausea. Physical Exam Constitutional: WD/WN, vitals as above Respiratory: normal respiratory effort, lungs clear to auscultation Cardiovascular: Rate/Rhythm: regular rate and regular rhythm Vessels: normal peripheral pulses Extremities: no edema Gastrointestinal (Abdomen): Inspection/Auscultation: normal bowel sounds Percussion/Palpation: abdomen soft; abdomen nontender Musculoskeletal: S/p back surgery, pedal pushes and pull strong bilaterally Skin: no rashes, warm and dry Neurologic: no focal motor deficits Psychiatric: A+Ox3, euthymic affect Results & Data Results & Data ([facility]) Vital Signs (Past 12 Hours) Vital Signs Temp Pulse Resp BP Pulse Ox 11/09/20 07:30 36.9 C 66 18 137/70 96 Laboratory Results Short CBC 11/09/20 Range/Units 05:54 WBC 9.72 (4.8-10.8) K/uL Hgb 11.3 L (12.0-16.0) g/dL Hct 36.1 L (37-47) % Plt Count 266 (130-400) K/uL BMP 11/09/20 05:54 Sodium 137 Potassium 4.1 Chloride 109 H Carbon Dioxide 27 BUN 24 H Creatinine 0.98 Glucose 125 H Calcium 8.6
== END 2020-11-09 12:52 | disposition home or self-care (01) | DRG 455 ==
LOC: ASU 07:57 → 3N 11:15
DX: I12.9 Hypertensive chronic kidney disease with stage 1 through stage 4 chronic kidney disease, or unspecified chronic kidney disease; N18.30 Chronic kidney disease, stage 3 unspecified; M48.062 Spinal stenosis, lumbar region with neurogenic claudication; Z79.899 Other long term (current) drug therapy; Z79.82 Long term (current) use of aspirin; H35.30 Unspecified macular degeneration